=== PATIENT | female | born 1955 | race Caucasian/White ===

== ENCOUNTER 2018-01-19 12:30 | Inpatient (IN) | payer OTHER ==
[2018-01-16 09:24] LABS: BASOPHILS # (AUTO) 0.08 x10^3/uL (0-0.1); BASOPHILS % (AUTO) 1 % (0-1); EOSINOPHILS # (AUTO) 0.06 x10^3/uL (0-0.4); EOSINOPHILS % (AUTO) 1 % (1-7); LYMPHOCYTES # (AUTO) 2.37 x10^3/uL (1-3.4); LYMPHOCYTES % (AUTO) 27 % (22-44); MD NO; MEAN CORPUSCULAR HEMOGLOBIN 30.3 pg (27.0-34.8); MEAN CORPUSCULAR HGB CONC 33.6 g/dL (32.4-35.8); MEAN CORPUSCULAR VOLUME 90.3 fL (80-100); MEAN PLATELET VOLUME 7.9 fL (7.4-10.4); MONOCYTES # (AUTO) 0.51 x10^3/uL (0.2-0.8); MONOCYTES % (AUTO) 6 % (2-9); NEUTROPHILS # (AUTO) 5.78 x10^3/uL (1.8-6.8); NEUTROPHILS % (AUTO) 66 % (42-75); PLATELET COUNT 315 x10^3/uL (130-400); RED BLOOD COUNT 4.64 x10^6/uL (3.82-5.3); RED CELL DISTRIBUTION WIDTH 13.9 % (9.6-15.2)
[2018-01-16 09:35] LABS: ANION GAP 9 mmol/L (5-15); CALCIUM 9.2 mg/dL (8.5-10.1); CHLORIDE 110 mmol/L (98-107); CREATININE 0.82 mg/dL (0.55-1.02)
[2018-01-16 09:45] LABS: PROTHROMBIN TIME 10.6 Seconds (9.6-11.5)
[2018-01-16 10:39] LABS: HEMOGLOBIN A1C 5.9 % (4.2-6.3)
[~2018-01-19] VITALS: Ht 165.1 cm; Wt 84.5 kg
[~2018-01-19 12:30] MED LIST: CALCIUM PO; EPINEPHRINE 1 MG/ML, 1ML ONE; KETOROLAC 60 MG/2 ML ONE; MELA5TAB19 PO; ROPIvacaine/PF 0.5%, 30 ML ONE; SIMV10TA PO; SODIUM CHLORIDE 0.9% 100 ML ONE; TRANEXAMIC ACID 100 MG/ML, 10ML ONE; TURMERIC PO; VANCOMYCIN 1,000 MG ONE
[2018-01-19] MEDS ORDERED: MIDAZOLAM 1 MG/ML, 2ML ONE (13:11)
[2018-01-19] MEDS ORDERED: MORPHINE SULFATE 4 MG/ML, 1ML ONE ×2 (13:17)
[2018-01-19] MEDS ORDERED: DEXAMETHASONE 4 MG/ML, 1ML ONE (13:18)
[2018-01-19] MEDS ORDERED: NEOSTIGMINE 1 MG/ML, 10ML ONE (13:18)
[2018-01-19] MEDS ORDERED: ONDANSETRON 2MG/ML, 2ML ONE (13:18)
[2018-01-19] MEDS ORDERED: CEFAZOLIN 1,000 MG ONE (13:18)
[2018-01-19] MEDS ORDERED: PROPOFOL 10 MG/ML, 20ML ONE (13:18)
[2018-01-19] MEDS ORDERED: ROCURONIUM 10MG/ML,5ML ONE (13:18)
[2018-01-19 13:33] VITALS: BP 154/86
[2018-01-19] MEDS ORDERED: morphine SULFATE 10 MG/ML, 1ML ONE ×6 (13:39→14:39)
[2018-01-19] MEDS ORDERED: LACTATED RINGERS 1,000 ML IV SCH (13:39)
[2018-01-19] MEDS ORDERED: GABAPENTIN 300 MG CAPSULE PO ONE (14:00)
[2018-01-19] MEDS ORDERED: SCOPOLAMINE PATCH, 1.5MG PATCH.TD72 TD ONE ×2 (14:38→16:30)
[2018-01-19] MEDS ORDERED: HYDROmorphone 2 MG/ML, 1ML IVPush PRN (15:00)
[2018-01-19] MEDS ORDERED: ONDANSETRON ODT 8 MG PO PRN (15:00)
[2018-01-19] MEDS ORDERED: ONDANSETRON 2MG/ML, 2ML IV PRN ×2 (15:00→16:30)
[2018-01-19] MEDS ORDERED: PROMETHAZINE 25 MG/ML, 1ML IM PRN ×2 (15:00)
[2018-01-19] MEDS ORDERED: hydrALAzine 20 MG/ML, 1ML IV PRN (15:00)
[2018-01-19] MEDS ORDERED: PROMETHAZINE 25 MG/ML, 1ML IV PRN (15:00)
[2018-01-19] MEDS ORDERED: MEPERIDINE/PF 25MG/0.5ML IVPush PRN (15:00)
[2018-01-19] MEDS ORDERED: LABETALOL 5MG/ML, 20ML IV PRN (15:00)
[2018-01-19] MEDS ORDERED: PROMETHAZINE 12.5 MG SUPP PR PRN (15:00)
[2018-01-19] MEDS ORDERED: OXYcodone 5 MG/5 ML ORAL.SOL UDC PO PRN (15:00)
[2018-01-19] MEDS ORDERED: PROMETHAZINE 25 MG SUPP PR PRN (15:00)
[2018-01-19] MEDS ORDERED: MORPHINE SULFATE 4 MG/ML, 1ML IVPush PRN (15:00)
[2018-01-19] MEDS ORDERED: PHENYLEPHRINE 10 MG/ML ONE (15:03)
[2018-01-19] MEDS ORDERED: ROPIvacaine/PF 0.5%, 30 ML ONE (15:28)
[2018-01-19] MEDS ORDERED: EPINEPHRINE 1 MG/ML, 1ML ONE (15:28)
[2018-01-19] MEDS ORDERED: SODIUM CHLORIDE 0.9% 100 ML ONE (15:28)
[2018-01-19] MEDS ORDERED: SENNA/DOCUSATE TABLET PO PRN (16:30)
[2018-01-19] MEDS ORDERED: ONDANSETRON 4 MG TABLET PO PRN (16:30)
[2018-01-19] MEDS ORDERED: DIPHENHYDRAMINE 50 MG CAPSULE PO PRN (16:30)
[2018-01-19] MEDS ORDERED: ZOLPIDEM 5MG TABLET PO PRN (16:30)
[2018-01-19] MEDS ORDERED: MAGNESIUM HYDROXIDE 8%, 30ML UDC PO PRN (16:30)
[2018-01-19] MEDS ORDERED: HYDROmorphone 2 MG/ML, 1ML IV PRN (16:30)
[2018-01-19] MEDS ORDERED: HYDROcodone/APAP 5/325 TABLET PO PRN (16:30)
[2018-01-19] MEDS ORDERED: ACETAMINOPHEN 650 MG/20.3 ML UDC PO PRN (16:30)
[2018-01-19] MEDS ORDERED: BISACODYL 10 MG SUPP PR PRN (16:30)
[2018-01-19] MEDS ORDERED: NS + 20MEQ KCL 1,000 ML IV SCH (18:30)
[2018-01-19] MEDS: ASPIRIN 81 MG TABLET EC PO SCH (19:21)
[2018-01-19] MEDS ORDERED: SIMVASTATIN 10 MG TABLET PO SCH (21:00)
[2018-01-19] MEDS: DOCUSATE 100 MG CAPSULE PO SCH (21:11)
[2018-01-20] VITALS: BP 122/64
[2018-01-20] MEDS: CEFAZOLIN PMX 2GM/50ML 50 ML IVPB SCH ×2 (00:05→07:49)
[2018-01-20 05:07] VITALS: BP 109/69
[2018-01-20] MEDS: OXYcodone IR 5MG TABLET PO PRN ×2 (05:32→09:20)
[2018-01-20] MEDS: ASPIRIN 81 MG TABLET EC PO SCH (05:32)
[2018-01-20] MEDS ORDERED: DEXAMETHASONE 4 MG/ML, 1ML IVPush SCH (06:00)
[2018-01-20 07:24] VITALS: BP 120/77
[2018-01-20] MEDS ORDERED: TAMSULOSIN 0.4 MG CAP.ER.24H PO ONE (07:30)
[2018-01-20] MEDS ORDERED: LACTATED RINGERS 1,000 ML IVBOLUS ONE (07:30)
[2018-01-20] MEDS ORDERED: OXYC5CAP2 PO (07:56)
[2018-01-20] MEDS ORDERED: TRAM50TA2 PO (07:56)
[2018-01-20] MEDS ORDERED: ONDA4TAB13 SL (07:57)
[2018-01-20] MEDS: DOCUSATE 100 MG CAPSULE PO SCH (09:20)
[2018-01-20 11:25] VITALS: BP 118/69
[2018-01-20] MEDS ORDERED: MELATONIN 5 MG TABLET PO SCH (21:00)
== END 2018-01-20 12:10 | disposition home or self-care (01) | DRG 470 ==
LOC: OUT 12:30 → ORIP 16:19 → 4NOR 17:57
PROVIDERS: ADMIT Orthopaedic Surgery; ATTEND Orthopaedic Surgery
PROC: 3E0T3BZ Introduction of Anesthetic Agent into Peripheral Nerves and Plexi, Percutaneous Approach (ICD-10-PCS; 2018-01-19)
PROC: 0SRD069 Replacement of Left Knee Joint with Oxidized Zirconium on Polyethylene Synthetic Substitute, Cemented, Open Approach (ICD-10-PCS; principal; 2018-01-19 15:30)
DX: M17.12 Unilateral primary osteoarthritis, left knee (principal); M87.88 Other osteonecrosis, other site; Z96.652 Presence of left artificial knee joint; E78.5 Hyperlipidemia, unspecified; Z88.8 Allergy status to other drugs, medicaments and biological substances
CPT/HCPCS: 36415; 80048; 83036; 85014; 85018; 85025; 85610; 85730; 87081; 93005; C1713; G0378; J0171; J0690; J1100; J1885; J2250; J2405; J2704; J2710; J2795; J3370; J3480; Q0162; C1776; J2270; J2370; J7120

== ENCOUNTER 2018-01-25 07:15 | Emergency (ER) | payer OTHER ==
[~2018-01-25] VITALS: Ht 165.1 cm; Wt 77.3 kg
[~2018-01-25 07:15] MED LIST changes: -EPINEPHRINE 1 MG/ML, 1ML ONE; -KETOROLAC 60 MG/2 ML ONE; +ONDA4TAB13 SL; +OXYC5CAP2 PO; -ROPIvacaine/PF 0.5%, 30 ML ONE; -SODIUM CHLORIDE 0.9% 100 ML ONE; +TRAM50TA2 PO; -TRANEXAMIC ACID 100 MG/ML, 10ML ONE; -VANCOMYCIN 1,000 MG ONE
[2018-01-25] MEDS ORDERED: FAMOTIDINE 20 MG/2 ML IVP ONE (08:00)
[2018-01-25] MEDS ORDERED: SODIUM CHLORIDE 0.9% 1,000ML IVBOLUS ONE (08:00)
[2018-01-25] MEDS ORDERED: ONDANSETRON 2MG/ML, 2ML IVPush ONE (08:00)
[2018-01-25] MEDS ORDERED: SODIUM CHLORIDE FLUSH 10ML SYR IVF ONE (08:00)
[2018-01-25] MEDS ORDERED: FAMOTIDINE 20 MG/2 ML ONE (08:04)
[2018-01-25] MEDS ORDERED: ONDANSETRON 2MG/ML, 2ML ONE (08:04)
[2018-01-25 08:23] LABS: BASOPHILS # (AUTO) 0.07 x10^3/uL (0-0.1); BASOPHILS % (AUTO) 1 % (0-1); EOSINOPHILS # (AUTO) 0.22 x10^3/uL (0-0.4); EOSINOPHILS % (AUTO) 2 % (1-7); LYMPHOCYTES # (AUTO) 1.95 x10^3/uL (1-3.4); LYMPHOCYTES % (AUTO) 21 % (22-44); MD NO; MEAN CORPUSCULAR HEMOGLOBIN 31.4 pg (27.0-34.8); MEAN CORPUSCULAR HGB CONC 35.1 g/dL (32.4-35.8); MEAN CORPUSCULAR VOLUME 89.3 fL (80-100); MEAN PLATELET VOLUME 7.9 fL (7.4-10.4); MONOCYTES # (AUTO) 0.62 x10^3/uL (0.2-0.8); MONOCYTES % (AUTO) 7 % (2-9); NEUTROPHILS # (AUTO) 6.62 x10^3/uL (1.8-6.8); NEUTROPHILS % (AUTO) 70 % (42-75); PLATELET COUNT 351 x10^3/uL (130-400); RED BLOOD COUNT 4.51 x10^6/uL (3.82-5.3); RED CELL DISTRIBUTION WIDTH 13.7 % (9.6-15.2)
[2018-01-25 08:35] LABS: ALANINE AMINOTRANSFERASE 19 U/L (12-78); ALBUMIN 2.8 g/dL (3.4-5.0); ANION GAP 8 mmol/L (5-15); CALCIUM 9.1 mg/dL (8.5-10.1); CHLORIDE 102 mmol/L (98-107); CREATININE 0.96 mg/dL (0.55-1.02)
[2018-01-25 08:38] LABS: ALKALINE PHOSPHATASE 33 U/L (45-117); BILIRUBIN,TOTAL 0.5 mg/dL (0.2-1.0); TOTAL PROTEIN 7.2 g/dL (6.4-8.2)
[2018-01-25 10:29] VITALS: BP 144/85
== END 2018-01-25 10:32 | disposition home or self-care (01) ==
LOC: ED 08:44
DX: R11.2 Nausea with vomiting, unspecified (principal)
CPT/HCPCS: 36415; 80053; 83690; 85025; 96361; 96374; 96375; 99283; J2405; J3490; J7030

== ENCOUNTER 2018-01-26 08:42 | Observation (INO) | payer OTHER ==
[~2018-01-26] VITALS: Ht 165.1 cm; Wt 77.8 kg
[2018-01-26] MEDS ORDERED: PROMETHAZINE 25 MG/ML, 1ML IM ONE (09:00)
[2018-01-26] MEDS ORDERED: SODIUM CHLORIDE FLUSH 10ML SYR IVF ONE ×2 (09:00→10:30)
[2018-01-26 09:13] LABS: BASOPHILS # (AUTO) 0.03 x10^3/uL (0-0.1); BASOPHILS % (AUTO) 0 % (0-1); EOSINOPHILS # (AUTO) 0.17 x10^3/uL (0-0.4); EOSINOPHILS % (AUTO) 2 % (1-7); LYMPHOCYTES # (AUTO) 1.83 x10^3/uL (1-3.4); LYMPHOCYTES % (AUTO) 22 % (22-44); MD NO; MEAN CORPUSCULAR HEMOGLOBIN 29.8 pg (27.0-34.8); MEAN CORPUSCULAR HGB CONC 33.2 g/dL (32.4-35.8); MEAN CORPUSCULAR VOLUME 89.8 fL (80-100); MEAN PLATELET VOLUME 7.5 fL (7.4-10.4); MONOCYTES # (AUTO) 0.54 x10^3/uL (0.2-0.8); MONOCYTES % (AUTO) 7 % (2-9); NEUTROPHILS # (AUTO) 5.58 x10^3/uL (1.8-6.8); NEUTROPHILS % (AUTO) 68 % (42-75); PLATELET COUNT 387 x10^3/uL (130-400); RED BLOOD COUNT 4.64 x10^6/uL (3.82-5.3); RED CELL DISTRIBUTION WIDTH 14.2 % (9.6-15.2)
[2018-01-26 09:23] LABS: ANION GAP 9 mmol/L (5-15); CALCIUM 9.9 mg/dL (8.5-10.1); CHLORIDE 107 mmol/L (98-107)
[2018-01-26 09:26] LABS: ALANINE AMINOTRANSFERASE 21 U/L (12-78); ALKALINE PHOSPHATASE 32 U/L (45-117); BILIRUBIN,TOTAL 0.6 mg/dL (0.2-1.0); CREATININE 0.79 mg/dL (0.55-1.02); TOTAL PROTEIN 7.2 g/dL (6.4-8.2)
[2018-01-26] MEDS ORDERED: PROMETHAZINE 25 MG/ML, 1ML ONE (10:23)
[2018-01-26] MEDS ORDERED: SODIUM CHLORIDE 0.9% 1,000ML IVBOLUS ONE (10:30)
[2018-01-26] MEDS ORDERED: ONDANSETRON 2MG/ML, 2ML IVPush ONE (10:30)
[2018-01-26] MEDS ORDERED: ONDANSETRON 2MG/ML, 2ML ONE (10:56)
[2018-01-26] MEDS ORDERED: HYDROmorphone 2 MG/ML, 1ML ONE (10:56)
[2018-01-26] MEDS ORDERED: HYDROmorphone 2 MG/ML, 1ML IVPush PRN (11:00)
[2018-01-26 11:50] VITALS: BP 157/84
[2018-01-26] MEDS ORDERED: hydrALAzine 20 MG/ML, 1ML IVPush PRN (12:00)
[2018-01-26] MEDS ORDERED: PROMETHAZINE 25 MG/ML, 1ML IM PRN (12:00)
[2018-01-26] MEDS ORDERED: METOCLOPRAMIDE 5 MG/ML, 2ML IVPush PRN (12:00)
[2018-01-26] MEDS ORDERED: BISACODYL 10 MG SUPP PR PRN (12:00)
[2018-01-26] MEDS ORDERED: ENOXAPARIN 40 MG/0.4 ML SQ SCH (12:00)
[2018-01-26] MEDS ORDERED: OXYcodone IR 5MG TABLET PO PRN (12:00)
[2018-01-26] MEDS ORDERED: LIDODERM 5% PATCH TD PRN (12:00)
[2018-01-26] MEDS ORDERED: ENALAPRILAT 1.25 MG/ML, 2ML IVPush PRN (12:00)
[2018-01-26] MEDS: LACTATED RINGERS 1,000 ML IV SCH (13:15)
[2018-01-26] MEDS: ACETAMINOPHEN 500 MG TABLET PO SCH ×2 (13:15→19:41)
[2018-01-26 14:50] VITALS: BP 147/80
[2018-01-26] MEDS ORDERED: ONDANSETRON ODT 4 MG PO PRN (15:00)
[2018-01-26] MEDS ORDERED: ONDANSETRON 2MG/ML, 2ML IVPush PRN (15:00)
[2018-01-26 19:21] VITALS: BP 148/82
[2018-01-26] MEDS: DOCUSATE 100 MG CAPSULE PO SCH (19:41)
[2018-01-26] MEDS ORDERED: SIMVASTATIN 10 MG TABLET PO SCH (21:00)
[2018-01-27] MEDS: ACETAMINOPHEN 500 MG TABLET PO SCH ×2 (01:03→08:26)
[2018-01-27] MEDS: LACTATED RINGERS 1,000 ML IV SCH (01:03)
[2018-01-27 01:35] VITALS: BP 166/95
[2018-01-27 05:32] LABS: BASOPHILS # (AUTO) 0.07 x10^3/uL (0-0.1); BASOPHILS % (AUTO) 1 % (0-1); EOSINOPHILS # (AUTO) 0.28 x10^3/uL (0-0.4); EOSINOPHILS % (AUTO) 3 % (1-7); LYMPHOCYTES # (AUTO) 2.49 x10^3/uL (1-3.4); LYMPHOCYTES % (AUTO) 27 % (22-44); MD NO; MEAN CORPUSCULAR HEMOGLOBIN 30.7 pg (27.0-34.8); MEAN CORPUSCULAR HGB CONC 33.8 g/dL (32.4-35.8); MEAN CORPUSCULAR VOLUME 90.8 fL (80-100); MEAN PLATELET VOLUME 7.7 fL (7.4-10.4); MONOCYTES # (AUTO) 0.72 x10^3/uL (0.2-0.8); MONOCYTES % (AUTO) 8 % (2-9); NEUTROPHILS # (AUTO) 5.64 x10^3/uL (1.8-6.8); NEUTROPHILS % (AUTO) 61 % (42-75); PLATELET COUNT 364 x10^3/uL (130-400); RED BLOOD COUNT 4.15 x10^6/uL (3.82-5.3); RED CELL DISTRIBUTION WIDTH 13.6 % (9.6-15.2)
[2018-01-27 05:34] LABS: ALANINE AMINOTRANSFERASE 29 U/L (12-78); ALBUMIN 2.7 g/dL (3.4-5.0); ANION GAP 8 mmol/L (5-15); CALCIUM 8.9 mg/dL (8.5-10.1); CHLORIDE 105 mmol/L (98-107)
[2018-01-27 05:36] LABS: ALKALINE PHOSPHATASE 31 U/L (45-117); BILIRUBIN,TOTAL 0.5 mg/dL (0.2-1.0); CREATININE 0.81 mg/dL (0.55-1.02); TOTAL PROTEIN 6.5 g/dL (6.4-8.2)
[2018-01-27] MEDS: DOCUSATE 100 MG CAPSULE PO SCH (08:26)
[2018-01-27 08:54] VITALS: BP 157/79
[2018-01-27] MEDS ORDERED: POLYETHYLENE GLYCOL 17 GM PACKET PO SCH (09:00)
[2018-01-27] MEDS ORDERED: ACET500T71 PO (11:27)
[2018-01-27] MEDS ORDERED: TRAM50TA2 PO (11:27)
[2018-01-27] MEDS ORDERED: ASPI-496 PO (11:38)
== END 2018-01-27 12:15 | disposition home or self-care (01) ==
LOC: ED 10:54 → INTOOBSV 10:55 → EDIP 10:55 → 4NOR 11:58
PROVIDERS: ADMIT Hospitalist; ATTEND Hospitalist
DX: T40.605A Adverse effect of unspecified narcotics, initial encounter (principal); R11.2 Nausea with vomiting, unspecified; I10 Essential (primary) hypertension; M19.90 Unspecified osteoarthritis, unspecified site; M51.36 Other intervertebral disc degeneration, lumbar region; E44.0 Moderate protein-calorie malnutrition; Z90.5 Acquired absence of kidney; Z96.652 Presence of left artificial knee joint
CPT/HCPCS: 36415; 74018; 80053; 83690; 83735; 84100; 85025; 96361; 96372; 96374; 96375; 96376; 97165; 99284; G0378; G8978; G8979; G8980; J1170; J1650; J2405; J2550; J2765; J7030; J7120

== ENCOUNTER → 2018-04-18 | Outpatient (CLI) | payer OTHER ==
[~2018-04-18] MED LIST changes: +ACET500T71 PO; +ASPI-496 PO
== END | disposition home or self-care (01) ==
LOC: CFH 13:58
PROVIDERS: ATTEND Nurse Practitioner
DX: R07.89 Other chest pain (principal)
CPT/HCPCS: 71046

== ENCOUNTER → 2018-12-07 | Outpatient (CLI) | payer OTHER ==
[~2018-12-07] MED LIST changes: +ACET500T64 PO; -ACET500T71 PO; +MELA5TAB14 PO; -MELA5TAB19 PO
== END | disposition home or self-care (01) ==
LOC: CFH 10:37
PROVIDERS: ATTEND Nurse Practitioner
DX: J40 Bronchitis, not specified as acute or chronic (principal); Z82.49 Family history of ischemic heart disease and other diseases of the circulatory system; Z84.89 Family history of other specified conditions; Z85.89 Personal history of malignant neoplasm of other organs and systems
CPT/HCPCS: 71046